=== PATIENT | male | born 1945 | race Caucasian/White ===

== ENCOUNTER → 2017-07-02 | Day surgery (SDC) | payer OTHER ==
[~2017-07-02] MED LIST: B COMPLEX # 11 EACH PO; B-1100 MG PO; BENTYL 10MG CAP10 MG PO; CALCIUM600 MG PO; COZAAR50 MG PO; DIGOXIN125 MCG PO; FERROUS SULFAT325 MG PO; FOLIC ACID 1 MG1 MG PO; NORCO 7.5-3251 EACH PO; PROTONIX40 MG PO; SOTALOL120 MG PO; SYNTHROID 50 M50 MCG PO; VIT D PO; ZOLOFT100 MG PO; ZYRTEC10 M3 PO
== END | disposition home or self-care (01) ==
LOC: OR 08:34
PROVIDERS: Internal Medicine Gastroenterology
PROC: 0DB38ZX Excision of Lower Esophagus, Via Natural or Artificial Opening Endoscopic, Diagnostic (ICD-10-PCS; 2017-07-02)
PROC: 0DB68ZX Excision of Stomach, Via Natural or Artificial Opening Endoscopic, Diagnostic (ICD-10-PCS; principal; 2017-07-02 11:30)
DX: K29.50 Unspecified chronic gastritis without bleeding (principal); K22.70 Barrett's esophagus without dysplasia; K44.9 Diaphragmatic hernia without obstruction or gangrene; Q27.33 Arteriovenous malformation of digestive system vessel; I10 Essential (primary) hypertension; I48.91 Unspecified atrial fibrillation; R63.4 Abnormal weight loss; K55.1 Chronic vascular disorders of intestine; F17.210 Nicotine dependence, cigarettes, uncomplicated; Z79.52 Long term (current) use of systemic steroids; Z79.891 Long term (current) use of opiate analgesic; Z79.899 Other long term (current) drug therapy; Z71.6 Tobacco abuse counseling
CPT/HCPCS: J2250; J3010; J7030

== ENCOUNTER → 2020-11-08 | Outpatient (CLI) | payer MEDICARE ==
[~2020-11-08] MED LIST changes: +CARDIZEM60 MG PO; +FLOMAX 0.4 MG0.4 MG PO; +HYDROCODON-ACE1 EAC6 PO; +HYDROXYZINE HCL25 MG PO; +LEVOTHYROXINE112 MC1 PO; +LIPITOR TAB 2020 MG PO; +LOPRESSOR50 MG PO; +MINIPRES CAP 2 M2 MG PO; +PRADAXA150 MG PO
== END ==
LOC: LAB 09:38
DX: R97.20 Elevated prostate specific antigen [PSA] (principal)
CPT/HCPCS: 36415; 84153

== ENCOUNTER → 2020-12-31 | Day surgery (SDC) | payer MEDICARE | END | disposition home or self-care (01) | LOC: OR 11:05 | PROVIDERS: Urology | PROC: 0VB03ZX Excision of Prostate, Percutaneous Approach, Diagnostic (ICD-10-PCS; principal; 2020-12-31 13:45) | DX: N41.9 Inflammatory disease of prostate, unspecified (principal); N42.89 Other specified disorders of prostate; E78.00 Pure hypercholesterolemia, unspecified; I10 Essential (primary) hypertension; F17.210 Nicotine dependence, cigarettes, uncomplicated; Z79.891 Long term (current) use of opiate analgesic; Z79.899 Other long term (current) drug therapy; Z79.2 Long term (current) use of antibiotics; Z79.890 Hormone replacement therapy | CPT/HCPCS: 88344; J7030; J7040 ==

== ENCOUNTER 2021-01-17 11:45 | Inpatient (IN) | payer OTHER, MEDICARE ==
[~2021-01-17] VITALS: Ht 177.8 cm; Wt 86.2 kg
[~2021-01-17 11:45] MED LIST changes: -CARDIZEM60 MG PO; -FLOMAX 0.4 MG0.4 MG PO
[2021-01-17 12:21] LABS: HEMOGLOBIN 12.9 gm/dl (14.0-17.5); RED BLOOD COUNT 4.19 M/UL (4.20-5.50); WHITE BLOOD COUNT 7.2 K/UL (4.5-11.0)
[2021-01-17 13:07] LABS: BUN/CREATININE RATIO 17 (0-10)
[2021-01-17] MEDS ORDERED: CARDIZEM60 MG PO (13:25)
[2021-01-18 05:05] LABS: HEMOGLOBIN 11.2 gm/dl (14.0-17.5); WHITE BLOOD COUNT 7.6 K/UL (4.5-11.0)
[2021-01-18 05:06] LABS: RED BLOOD COUNT 3.72 M/UL (4.20-5.50)
[2021-01-18 05:25] LABS: BUN/CREATININE RATIO 16 (0-10)
[2021-01-19 04:19] LABS: HEMOGLOBIN 11.9 gm/dl (14.0-17.5); RED BLOOD COUNT 3.94 M/UL (4.20-5.50)
[2021-01-19 04:41] LABS: BUN/CREATININE RATIO 17 (0-10)
[2021-01-20 04:03] LABS: BUN/CREATININE RATIO 21 (0-10)
--- NOTE | 2021-01-21 01:42 | NUR ---
0130 PT HAVING INCREASED FREQUENCY WITH 50 TO 75 ML OF TEA COLOR URINE. PT BLADDER SCANNED AND IT SHOWED 462 ML. WILL NOTIFY
--- NOTE | 2021-01-21 01:45 | NUR ---
0145 PT STRAIGHT CATHED AT THIS TIME. 625ML OF DARK YELLOW URINE NOTED. PT TOLERATED WELL.
[2021-01-21 03:05] LABS: HEMOGLOBIN 11.7 gm/dl (14.0-17.5); RED BLOOD COUNT 3.88 M/UL (4.20-5.50); WHITE BLOOD COUNT 6.8 K/UL (4.5-11.0)
[2021-01-21 03:17] LABS: BUN/CREATININE RATIO 21 (0-10)
--- NOTE | 2021-01-21 06:10 | NUR ---
0510 PT STILL C/O LOWER ABD PAIN AND BURNING. PT HAD 500ML ACCORDING TO BLADDER SCAN. ATTEMPTED TO STRAIGHT CATH PT, BUT WAS NOT SUCCESSFUL DUE TO BLOOD IN TUBING. RENAY WAS ABLE TO STRAIGHT CATH PT. 600 ML NOTED. BLOOD NOTED TO STRAIGHT BAG AT FIRST AND CLEAR YELLOW NOTED TO TUBE OF CATH. PT HAD MODERATE AMOUNT OF BLOOD AND CLOTS NOTED AROUND CATH INSERTION SITE. 3 VERY BIG CLOTS WERE NOTED. URINE FOR UA COLLECTED AND SENT TO LAB. WILL INFORM DAY SHIFT NURSE OF SITUATION.
[2021-01-22 03:27] LABS: HEMOGLOBIN 12.3 gm/dl (14.0-17.5); RED BLOOD COUNT 4.07 M/UL (4.20-5.50); WHITE BLOOD COUNT 6.3 K/UL (4.5-11.0)
[2021-01-22 03:54] LABS: BUN/CREATININE RATIO 19 (0-10)
[2021-01-22] MEDS ORDERED: FLOMAX 0.4 MG0.4 MG PO (12:52)
--- NOTE | 2021-01-22 16:10 | NUR ---
REVIEWED DC ORDERS AND MEDICATION AND FOLLOW APT TIMES WITH THE PT AND HIS SON JESSE SCANLON. REENFORCED WITH BOTH OF THEM NOT TO RESTART PRADXA UNTIL THEY FOLLOW UP WITH DR BILLY ON THE January. BOTH VERBALIZED UNDERSTANDING. I ALSO TOLD THEM THAT DR MICHAEL'S OFFICE WOULD CALL THEM WITH AN APT [place] AND IF THEY DID NOT HEAR FROM THEM TO GIVE THE OFFICE A CALL
== END 2021-01-22 16:12 | disposition home or self-care (01) | DRG 963 ==
LOC: ER1 11:45 → CCU 13:05 → M/S 13:05 → CDU 13:05 → CCU 16:00 → M/S 01-19 16:31
PROVIDERS: Emergency Medicine; Internal Medicine Infectious Disease; Physician Assistant Medical; ADMIT Surgery
DX: S27.321A Contusion of lung, unilateral, initial encounter (principal); I50.33 Acute on chronic diastolic (congestive) heart failure; S37.33XA Laceration of urethra, initial encounter; J96.01 Acute respiratory failure with hypoxia; S05.41XA Penetrating wound of orbit with or without foreign body, right eye, initial encounter; I48.20 Chronic atrial fibrillation, unspecified; J98.11 Atelectasis; N17.9 Acute kidney failure, unspecified; R31.9 Hematuria, unspecified; F17.210 Nicotine dependence, cigarettes, uncomplicated; V49.3XXA Car occupant (driver) (passenger) injured in unspecified nontraffic accident, initial encounter; K21.9 Gastro-esophageal reflux disease without esophagitis; E78.5 Hyperlipidemia, unspecified; Z79.899 Other long term (current) drug therapy; Z20.822 Contact with and (suspected) exposure to COVID-19; I11.0 Hypertensive heart disease with heart failure; I50.9 Heart failure, unspecified; Z98.890 Other specified postprocedural states; Z83.3 Family history of diabetes mellitus; Z80.9 Family history of malignant neoplasm, unspecified; X58.XXXA Exposure to other specified factors, initial encounter
CPT/HCPCS: ECHO; 12011; 36415; 36600; 70450; 71045; 71260; 72125; 72128; 72131; 72170; 80048; 80053; 80307; 81001; 82550; 82553; 82803; 83605; 83874; 83880; 84484; 85025; 85027; 85610; 85730; 86850; 86900; 86901; 87040; 87086; 90471; 90715; 93005; 93306; 94640; 94664; 94760; 96374; 96375; 97110-GP-CQ; 97116-GP-CQ; 97161; 99285; C9113; J0696; J1160; J1205; J1885; J1940; J2270; J7070; Q9967; U0002

== ENCOUNTER → 2021-03-01 | Outpatient (CLI) | payer OTHER, MEDICARE ==
[~2021-03-01] MED LIST changes: +CARDIZEM60 MG PO; +FLOMAX 0.4 MG0.4 MG PO
[2021-03-01 12:05] LABS: HEMOGLOBIN 12.2 gm/dl (14.0-17.5); RED BLOOD COUNT 4.17 M/UL (4.20-5.50); WHITE BLOOD COUNT 8.8 K/UL (4.5-11.0)
== END ==
LOC: LAB 11:17
PROVIDERS: Nurse Practitioner Family
DX: E78.5 Hyperlipidemia, unspecified (principal); I10 Essential (primary) hypertension; E03.9 Hypothyroidism, unspecified; E53.8 Deficiency of other specified B group vitamins; E55.9 Vitamin D deficiency, unspecified
CPT/HCPCS: 36415; 80053; 80061; 82570; 82607; 84156; 84439; 84443; 85025

== ENCOUNTER → 2021-04-24 | Outpatient (CLI) | payer MEDICARE ==
[2021-04-25 10:16] LABS: CREATININE, URINE 235.4 mg/dL (Not Estab.)
== END ==
LOC: LAB 11:47
PROVIDERS: Internal Medicine Nephrology
DX: N18.32 Chronic kidney disease, stage 3b (principal)
CPT/HCPCS: 36415; 80048; 81001; 82043; 82570; 84156

== ENCOUNTER → 2021-04-26 | Outpatient (CLI) | payer MEDICARE | LOC: KOH-I 08:00 | DX: R59.0 Localized enlarged lymph nodes (principal); R91.8 Other nonspecific abnormal finding of lung field | CPT/HCPCS: 71250 ==

== ENCOUNTER → 2021-06-05 | Outpatient (CLI) | payer MEDICARE | LOC: HEART 5 09:00 | DX: I48.91 Unspecified atrial fibrillation (principal) ==

== ENCOUNTER → 2021-07-29 | Outpatient (CLI) | payer MEDICARE ==
[2021-07-29 11:48] LABS: BUN/CREATININE RATIO 18 (0-10)
[2021-07-30 10:14] LABS: CREATININE, URINE 121.4 mg/dL (Not Estab.)
== END ==
LOC: LAB 10:51
PROVIDERS: Internal Medicine Nephrology
DX: N18.32 Chronic kidney disease, stage 3b (principal)
CPT/HCPCS: 36415; 80053; 81001; 82043; 82570; 84156

== ENCOUNTER → 2021-08-14 | Outpatient (CLI) | payer MEDICARE | LOC: LBRF 15:54 | DX: R31.9 Hematuria, unspecified (principal) | CPT/HCPCS: 87077; 87086; 87186 ==

== ENCOUNTER → 2021-09-09 | Outpatient (CLI) | payer MEDICARE ==
[2021-09-09 10:25] LABS: HEMOGLOBIN 15.2 gm/dl (14.0-17.5); RED BLOOD COUNT 5.1 M/UL (4.20-5.50); WHITE BLOOD COUNT 6.6 K/UL (4.5-11.0)
[2021-09-09 10:53] LABS: BUN/CREATININE RATIO 18 (0-10)
[2021-09-10 10:13] LABS: PROSTATE SPECIFIC AG, SERUM 2.7 ng/mL (0.0-4.0)
== END ==
LOC: LAB 09:12
PROVIDERS: Nurse Practitioner Family
DX: E78.5 Hyperlipidemia, unspecified (principal); I10 Essential (primary) hypertension; E03.9 Hypothyroidism, unspecified; E53.8 Deficiency of other specified B group vitamins; E55.9 Vitamin D deficiency, unspecified; R97.20 Elevated prostate specific antigen [PSA]
CPT/HCPCS: 36415; 80053; 80061; 82607; 84153; 84154; 84439; 84443; 85025

== ENCOUNTER → 2021-09-10 | Outpatient (CLI) | payer MEDICARE | LOC: CT 10:36 | DX: R59.9 Enlarged lymph nodes, unspecified (principal); D72.829 Elevated white blood cell count, unspecified | CPT/HCPCS: 71260; Q9967 ==

== ENCOUNTER → 2021-10-09 | Outpatient (CLI) | payer MEDICARE | LOC: HEART 5 10:00 | DX: I48.91 Unspecified atrial fibrillation (principal) ==

== ENCOUNTER → 2021-10-18 | Outpatient (CLI) | payer MEDICARE ==
[2021-10-19 04:10] LABS: CALCIUM, SERUM 9.4 mg/dL (8.6-10.2); CREATININE, SERUM 1.19 mg/dL (0.76-1.27); CREATININE, URINE 70.5 mg/dL (Not Estab.); POTASSIUM, SERUM 4.3 mmol/L (3.5-5.2)
== END ==
LOC: LAB 08:21
PROVIDERS: Internal Medicine Nephrology
DX: N18.32 Chronic kidney disease, stage 3b (principal); R97.20 Elevated prostate specific antigen [PSA]
CPT/HCPCS: 36415; 80048; 82043; 82570; 84153; 84156

== ENCOUNTER → 2022-02-07 | Outpatient (CLI) | payer OTHER | LOC: RAD 10:57 | DX: M50.322 Other cervical disc degeneration at C5-C6 level (principal); Z87.81 Personal history of (healed) traumatic fracture | CPT/HCPCS: 72050 ==